=== PATIENT | female | born 1990 | race Caucasian/White ===

== ENCOUNTER 2017-08-09 07:25 | Inpatient (IN) | payer SELFPAY ==
[2017-08-09 08:00] VITALS: BMI 31.9
[2017-08-09] MEDS: Lactated Ringers 1,000 ML 50 ML IV ×2 (08:00→19:01)
[2017-08-09 09:08] LABS: Hematocrit 33.4 % (37-47); Mean Corp Hgb Conc 32.9 g/gl (32-36); Mean Corpuscular Hgb 30.3 pg (27.0-32.0); Mean Platelet Vol. 11.8 fl (6.2-12.0); Platelet Count 158 K/mm3 (150-450); RBC Distribution Width CV 13.7 % (11.6-14.6); Red Blood Count 3.63 M/mm3 (4.2-5.4); White Blood Count 7.8 K/mm3 (4.4-11.0)
[2017-08-09 09:09] LABS: Scan Indicated on CBC? Y/N NO
[2017-08-09] MEDS: Oxytocin 30 units/NS 500 ml 30 UNITS/500 ML IV.SOLN IV (12:27)
[2017-08-09] MEDS: Oxytocin 30 units/NS 500 ml 30 UNITS/500 ML IV.SOLN 334 UNITS IV (20:06)
--- NOTE | 2017-08-09 20:24 | PCM.OB.VAG ---
- Problem List (1) 41 weeks gestation of Status: Acute (2) (spontaneous vaginal delivery) Status: Acute Vaginal Delivery Maternal Presentation: Elective Induction Method of Induction: Pitocin Rupture of Membrane time: 08/09/17 1330h Amniotic Fluid Description: Clear Final JOCELYN: 08/01/17 Final JOCELYN Source: [place] <20 weeks Gestational age: 41 Weeks and 1 Days [place] doctor who attended delivery (if requested by OB): Poornima Gonzalez Date of Procedure: 08/09/17 Pre-Operative Diagnosis: 41 1/7wga Post-Operative Diagnosis: 41 7wga Type of Anesthesia: None, Local with 1% lidocaine Description of Procedure: Pushed to deliver a female infant in [place]GIN[place] through a nuchal cord. The was placed on the maternal abdomen and further attended by nursery personnel. The cord was doubly clamped and cut at 2 minutes of life. Cord gas specimen were obtained. The placenta delivered spontaneously and appeared intact on inspection. A second degree perineal laceration was repaired with 3-0 Vicryl Rapide. Presentation: Vertex Placental Delivery Description: Spontaneous Placenta Disposition: [facility] Cord Vessel Description: 3 Vessels Cord Gases drawn per routine: ABG, VBG Cord Entanglement: Around neck x 1, tight Estimated Blood Loss: 350 mL Infant A gender: Female (1 minute): 8 (5 minute): 9 Laceration: Midline, Perineal Extension/lac, 2nd degree Medications given after delivery: IV Pitocin Complications: None
--- NOTE | 2017-08-09 20:28 | OP.PCM_ITS ---
- Problem List (1) 41 weeks gestation of Status: Acute (2) (spontaneous vaginal delivery) Status: Acute Vaginal Delivery Maternal Presentation: Elective Induction Method of Induction: Pitocin Rupture of Membrane time: 08/09/17 1330h Amniotic Fluid Description: Clear Final JOCELYN: 08/01/17 Final JOCELYN Source: [place] <20 weeks Gestational age: 41 Weeks and 1 Days [place] doctor who attended delivery (if requested by OB): Poornima Gonzalez Date of Procedure: 08/09/17 Pre-Operative Diagnosis: 41 1/7wga Post-Operative Diagnosis: 41 7wga Type of Anesthesia: None, Local with 1% lidocaine Description of Procedure: Pushed to deliver a female infant in [place]GIN[place] through a nuchal cord. The infant was placed on the maternal abdomen and further attended by nursery personnel. The cord was doubly clamped and cut at 2 minutes of life. Cord gas specimen were obtained. The placenta delivered spontaneously and appeared intact on inspection. A second degree perineal laceration was repaired with 3-0 Vicryl Rapide. Presentation: Vertex Placental Delivery Description: Spontaneous Placenta Disposition: [facility] Cord Vessel Description: 3 Vessels Cord Gases drawn per routine: ABG, VBG Cord Entanglement: Around neck x 1, tight Estimated Blood Loss: 350 mL Infant A gender: Female (1 minute): 8 (5 minute): 9 Laceration: Midline, Perineal Extension/lac, 2nd degree Medications given after delivery: IV Pitocin Complications: None
[2017-08-09] MEDS: Oxytocin 30 units/NS 500 ml 30 UNITS/500 ML IV.SOLN 167 UNITS IV (20:36)
--- NOTE | 2017-08-09 20:54 | PCM.DCVAG ---
Discharge Diet: No Restrictions Discharge Activity: Return to Normal Activity, May Shower May resume sexual activity in: 6 weeks Lifting Restrictions: 10-20lb Call your doctor if your incision/area has: Continuous Slow Oozing, Sudden Increased Bleeding, Increased Pain/ Swelling, Increased Redness, Foul Smelling Discharge Call your doctor if you observe: Fever of 101 or Higher, Inability to urinate, Inability to have a bowel movement, Using more than one pad per hour, Shortness of breath, Chest pain, Calf discomfort, Uncontrolled pain Suture Line Care: Avoid Pulling/Pushing Cleanse incision/area with: Soap & Water Additional Instructions: If you experience any of the following, contact your healthcare provider. Bleeding that soaks a pad every hour for 2 hours Fever 100.4 or higher Unrelieved incision or abdominal pain Swelling, redness, discharge or bleeding from your incision or episiotomy site Your incision begins to separate Problems urinating (including inability to urinate or burning while urinating). Visual changes Severe headache Flu-like symptoms Pain or redness in one of both of your breasts Pain, warmth, tenderness or swelling in your legs, especially the calf area Frequent nausea and vomiting Symptoms of depression or anxiety If you experience any of the following, call 911 or go to the nearest Emergency Room. Chest pain Problems breathing Seizure activity Partial or complete paralysis of a body part, slurred speech, weakness or drooping of the face, or a sudden inability to walk or hold your balance Allergies/Adverse Reactions: Allergies epinephrine Allergy (Verified 08/09/17 07:53) Vomiting Medications to take at Discharge Docusate Sodium [Colace] 100 mg PO BID PRN PRN #60 cap 08/09/17 Ibuprofen 800 mg PO TID PRN #30 tab 08/09/17 Vit No.130/Iron/FA [ Tablet] 1 tab PO DAILY 08/09/17 The following prescriptions were given: Docusate Sodium [Colace] 100 mg PO BID PRN PRN #60 cap PRN Reason: Constipation Ibuprofen 800 mg PO TID PRN #30 tab PRN Reason: Pain Orders to be completed after discharge: Electric breast pump Location: None Selected Please Follow Up With: Anthony Maldonado MD When: 6 weeks Primary Care Physician: Anthony Kennedy [Primary Care Provider] -
--- NOTE | 2017-08-09 20:58 | DCINST_ITS ---
Discharge Diet: No Restrictions Discharge Activity: Return to Normal Activity, May Shower May resume sexual activity in: 6 weeks Lifting Restrictions: 10-20lb Call your doctor if your incision/area has: Continuous Slow Oozing, Sudden Increased Bleeding, Increased Pain/ Swelling, Increased Redness, Foul Smelling Discharge Call your doctor if you observe: Fever of 101 or Higher, Inability to urinate, Inability to have a bowel movement, Using more than one pad per hour, Shortness of breath, Chest pain, Calf discomfort, Uncontrolled pain Suture Line Care: Avoid Pulling/Pushing Cleanse incision/area with: Soap & Water Additional Instructions: If you experience any of the following, contact your healthcare provider. * Bleeding that soaks a pad every hour for 2 hours * Fever 100.4 or higher * Unrelieved incision or abdominal pain * Swelling, redness, discharge or bleeding from your incision or episiotomy site * Your incision begins to separate * Problems urinating (including inability to urinate or burning while urinating) . * Visual changes * Severe headache * Flu-like symptoms * Pain or redness in one of both of your breasts * Pain, warmth, tenderness or swelling in your legs, especially the calf area * Frequent nausea and vomiting * Symptoms of depression or anxiety If you experience any of the following, call 911 or go to the nearest Emergency Room. * Chest pain * Problems breathing * Seizure activity * Partial or complete paralysis of a body part, slurred speech, weakness or drooping of the face, or a sudden inability to walk or hold your balance Allergies/Adverse Reactions: Allergies epinephrine Allergy (Verified 08/09/17 07:53) Vomiting Medications to take at Discharge Docusate Sodium [Colace] 100 mg PO BID PRN PRN #60 cap 08/09/17 Ibuprofen 800 mg PO TID PRN #30 tab 08/09/17 Vit No.130/Iron/FA [ Tablet] 1 tab PO DAILY 08/09/17 The following prescriptions were given: Docusate Sodium [Colace] 100 mg PO BID PRN PRN #60 cap PRN Reason: Constipation Ibuprofen 800 mg PO TID PRN #30 tab PRN Reason: Pain Orders to be completed after discharge: Electric breast pump Location: None Selected Please Follow Up With: Anthony Maldonado MD When: 6 weeks Primary Care Physician: Anthony Kennedy [Primary Care Provider] -
[2017-08-09 22:15] VITALS: BP 118/61; PULSE 105; RESP 16; TEMP 36.8; O2SAT 98
[2017-08-10 00:40] VITALS: BP 101/60; PULSE 76; RESP 18; TEMP 36.9
[2017-08-10 04:34] VITALS: BP 93/50; PULSE 82; RESP 18; TEMP 36.6
--- NOTE | 2017-08-10 04:44 | NURSING ---
Spoke with patient regarding non-immune result for rubella. Pt states she does not want the vaccination at this time. Offered pt vaccination information sheet, pt states she would like this for future reference.
[2017-08-10 08:00] VITALS: BP 102/65; PULSE 83; RESP 16; TEMP 37.1
[2017-08-10] MEDS: Ibuprofen 600 MG Tablet PO (08:50)
--- NOTE | 2017-08-10 09:07 | PCM.PN.OB ---
Patient Problems: Active and Suspected Problems 41 weeks gestation of (Acute) (spontaneous vaginal delivery) (Acute) Subjective: Patient without complaints. Breast-feeding going well. Minimal vaginal bleeding. - Physical Exam Vital Signs AF, VSS Temp Pulse Resp BP Pulse Ox 98.7 F 83 16 102/65 98 08/10/17 08:00 08/10/17 08:00 08/10/17 08:00 08/10/17 08:00 08/09/17 22:15 Oxygen Delivery Method Room Air Weight: 174 lb 9.6 oz Body Mass Index (BMI) 31.9 Intake and Output for Last 24 Hours 08/08/17 08/09/17 08/10/17 23:59 23:59 23:59 Intake Total 650 / 650 Output Total 400 / 400 Balance 250 / 250 Laboratory Tests Past 24 Hrs 08/09/17 08/09/17 08/10/17 08:40 08:40 01:55 WBC 7.8 RBC 3.63 L Hgb 11.0 L Hct 33.4 L MCV 92.0 MCH 30.3 MCHC 32.9 RDW 13.7 RDW Differential 45.0 H Plt Count 158 MPV 11.8 HIV 1&2 Antibody Pending Blood Type A POSITIVE Antibody Screen NEGATIVE Fundus firm, minimal lochia. Assessment/Plan Active and Suspected Problems 41 weeks gestation of (Acute) (spontaneous vaginal delivery) (Acute) Doing well. Continuing present care.
[2017-08-10 10:30] LABS: HIV - WCH Non-Reactive (Nonreactive)
[2017-08-10 12:00] VITALS: BP 102/72; PULSE 85; RESP 12; TEMP 36.6
[2017-08-10 16:05] VITALS: BP 109/64; PULSE 71; RESP 16; TEMP 36.9
[2017-08-10 21:05] VITALS: BP 107/73; PULSE 75; RESP 18; TEMP 36.6; O2SAT 98
[2017-08-11 02:00] VITALS: BP 101/64; PULSE 75; RESP 18; TEMP 36.7; O2SAT 98
[2017-08-11 08:00] VITALS: BP 105/65; PULSE 81; RESP 16; TEMP 36.6; O2SAT 98
--- NOTE | 2017-08-11 09:52 | NURSING ---
Pt. eligible for MMR vaccine and continues to decline.
--- NOTE | 2017-08-11 10:54 | PCM.PN.OB ---
Patient Problems: Active and Suspected Problems 41 weeks gestation of (Acute) (spontaneous vaginal delivery) (Acute) Subjective: Patient without complaints. Breast-feeding going well. Minimal vaginal bleeding. Wants to go home later today. - Physical Exam Vital Signs AF, VSS Temp Pulse Resp BP Pulse Ox 97.9 F 81 16 105/65 98 08/11/17 08:00 08/11/17 08:00 08/11/17 08:00 08/11/17 08:00 08/11/17 08:00 Oxygen Delivery Method Room Air Weight: 174 lb 9.6 oz Body Mass Index (BMI) 31.9 Intake and Output for Last 24 Hours 08/09/17 08/10/17 08/11/17 23:59 23:59 23:59 Intake Total 650 / 650 Output Total 400 / 400 Balance 250 / 250 Assessment/Plan Active and Suspected Problems 41 weeks gestation of (Acute) (spontaneous vaginal delivery) (Acute) Doing well. Will release to home with routine instructions.
[2017-08-11 11:30] VITALS: BP 109/72; PULSE 93; RESP 16; TEMP 36.7
[2017-08-11 12:20] VITALS: PULSE 142; RESP 52; TEMP 36.9
== END 2017-08-11 12:20 | disposition home or self-care (01) | DRG 775 ==
PROVIDERS: Obstetrics & Gynecology; Admitting Provider Obstetrics & Gynecology; Family Provider Family Medicine; PCP Family Medicine; Visit Provider Obstetrics & Gynecology
DX: O48.0 Post-term pregnancy (principal); O69.1XX0 Labor and delivery complicated by cord around neck, with compression, not applicable or unspecified; O70.1 Second degree perineal laceration during delivery; Z37.0 Single live birth; Z3A.41 41 weeks gestation of pregnancy; Z78.9 Other specified health status
CPT/HCPCS: 59025; 59050; 85027; 86703; 86850; 86900; 93460; 99218; J7120; G0378

== ENCOUNTER → 2017-09-26 10:56 | Outpatient (CLI) | payer OTHER, SELFPAY ==
[2017-09-29 11:32] LABS: HPV Reflexed? NOT INDICATED
== END ==
PROVIDERS: Visit Provider Obstetrics & Gynecology
DX: Z12.4 Encounter for screening for malignant neoplasm of cervix (principal)
CPT/HCPCS: 88175; G0145